=== PATIENT | male | born 1980 | race Caucasian/White ===

== ENCOUNTER 2019-07-21 04:32 | Inpatient (IN) | payer OTHER ==
[~2019-07-21] VITALS: Ht 177.8 cm; Wt 81.9 kg
[2019-07-21] VITALS (7 sets, daily range): BP systolic 114–130; BP diastolic 68–87
[~2019-07-21 04:32] MED LIST: ALL DAY ALLERGY10 M3; BACTRIM DS TAB1 EACH PO; BACTROBAN22 GM TP; RANITIDINE 150150 M1 PO
[2019-07-21] MEDS ORDERED: PRILOSEC OTC20 MG PO (04:39)
[2019-07-21 05:17] LABS: ABSOLUTE BASOPHILS 0.1 thou/uL (0.0-0.2); ABSOLUTE EOSINOPHILS 0.2 thou/uL (0.0-0.7); ABSOLUTE LYMPHOCYTES 3.4 thou/uL (0.8-5.3); ABSOLUTE MONOCYTES 0.6 thou/uL (0.0-1.2); ABSOLUTE NEUTROPHILS 3.5 thou/uL (1.6-8.1); BASOPHILS 0.9 %; EOSINOPHILS 2.5 %; HEMATOCRIT 49.1 % (42.0-52.0); HEMOGLOBIN 17.3 gm/dL (14.0-18.0); LYMPHOCYTES 44.3 %; MCH 31.5 pg (26.0-34.0); MCHC 35.3 g/dL (28.0-37.0); MCV 89.1 fL (80.0-100.0); MONOCYTES 7.9 %; MPV 7.4 fl. (7.2-11.1); NUCLEATED RBCS 0 /100WBC; PLATELET COUNT* 317 thou/uL (150-400); POLYS 44.4 %; RBC 5.51 mil/uL (4.50-6.00); RDW-CV 13.6 % (10.5-14.5); WBC 7.8 thou/uL (4.0-11.0)
[2019-07-21 05:30] LABS: CALCIUM 9.2 mg/dL (8.5-10.1); CREATININE 0.9 mg/dL (0.6-1.3); POTASSIUM 4.1 mmol/L (3.5-5.1)
[2019-07-21 05:30] LABS: AMP/METHAMP Negative (Negative); BARBITURATES Negative (Negative); BENZODIAZEPINES Negative (Negative); COCAINE Negative (Negative); METHADONE Negative (Negative); OPIATES Negative (Negative); PCP Negative (Negative); THC POSITIVE (Negative)
[2019-07-21 05:31] LABS: URINE BILIRUBIN NEGATIVE (Negative); URINE BLOOD NEGATIVE (Negative); URINE CLARITY CLEAR; URINE COLOR YELLOW; URINE GLUCOSE-RANDOM NEGATIVE (Negative); URINE KETONES NEGATIVE (Negative); URINE LEUKOCYTES-REFLEX NEGATIVE (Negative); URINE NITRITE-REFLEX NEGATIVE (Negative); URINE PROTEIN NEGATIVE (Negative); URINE SPECIFIC GRAVITY <= 1.005 (1.005-1.030); URINE UROBILINOGEN 0.2 E.U./dl (0.2-1.0)
[2019-07-21 05:42] LABS: ALBUMIN 4.2 g/dL (3.4-5.0); TOTAL BILIRUBIN 0.4 mg/dL (<0.1-1.0); TOTAL PROTEIN 8.2 g/dL (6.4-8.2)
[2019-07-21 05:50] LABS: INR 1.1
--- NOTE | 2019-07-21 07:05 | NUR ---
THIS NURSE RECEIVED REPORT FROM DELIA FOLEY. THIS NURSE TO ASSUME PT CARE AT THIS TIME.
--- NOTE | 2019-07-21 07:05 | NUR ---
THIS NURSE RECEIVED REPORT FROM DELIA FOLEY. THIS NURSE TO ASSUME PT CARE AT THIS TIME.
--- NOTE | 2019-07-21 07:59 | NUR ---
REPORT GIVEN TO DELIA GALLARDO WHO IS TO ASSUME PT CARE INPATIENT NURSE.
--- NOTE | 2019-07-21 08:30 | NUR ---
REC'D REPORT AOORIX 0800, PATIENT ARRIVED 0810 TO UNIT VIA GURNEY AND ED STAFF. A&LX4, ABLE TO COMMUNICATE NEEDS TO STAFF. ASSESSMENT COMPLETE, VS OBTAINED, WNL. CARDIZEM GTTS INFUSING 10 ML/HR. ORIENTED TO ROOM, CALL LIGHT WITHIN REACH. HOURLY ROUNDING FOR SAFETY/NEEDS.
--- NOTE | 2019-07-21 11:01 | EKG ---
[place] [address] ELECTROCARDIOGRAM REPORT Name: JACOBEVERARDO Essence Room: [address] ADM IN .R.#: [id number] Admission: 07/21/19 Attend Phys: Tabitha Damon Discharge: Date of : 84 Report #: [id number] THIS REPORT FOR: //name// [facility] ED Test Date: 2019-07-21 Test Time: 04:37:43 Pat Name: EVERARDO JAMES Department: Room: [facility] Gender: M Senior Service Aide: [place] : 1980 Requested By: Lynette Parra Order Number: [id number] MD: Elmer Mclaughlin Measurements Intervals [place] Rate: 152 P: [place]: QRS: -51 QRSD: 91 T: 38 QT: 297 QTc: 473 Interpretive Statements Atrial fibrillation Inferior infarct, old Borderline ST elevation, anterior leads No previous ECG available for comparison Electronically Signed On 07-21-2019 11:00:54 FORENSIC CHEMIST by Elmer Mclaughlin [email or web address] <ELECTRONICALLY SIGNED> By: Elmer Mclaughlin MD, [facility] 07/21/19 1100 [id number] 043 Elmer Mclaughlin MD, FACC /EPI
--- NOTE | 2019-07-21 11:01 | EKG ---
[place] [address] ELECTROCARDIOGRAM REPORT Name: EVERARDO JAMES Essence Room: [address] ADM IN .R.#: [id number] Admission: 07/21/19 Attend Phys: Tabitha Damon Discharge: Date of : 84 Report #: [id number] THIS REPORT FOR: //name// ED Test Date: 2019-07-21 Test Time: 05:57:35 Pat Name: EVERARDO JAMES Department: Room: [facility] Gender: M Corporate Communications Manager: [place] : 1980 Requested By: Lynette Parra Order Number: [id number] MD: Elmer Mclaughlin Measurements Intervals [place] Rate: 127 P: [place]: QRS: -30 QRSD: 82 T: 44 QT: 303 QTc: 441 Interpretive Statements Atrial fibrillation Left axis deviation ST elev, probable normal early repol pattern Electronically Signed On 07-21-2019 11:01:11 EDGERMAN by Elmer Mclaughlin [email or web address] <ELECTRONICALLY SIGNED> By: Elmer Mclaughlin MD, [facility] 07/21/19 1101 0557 0557 Elmer Mclaughlin MD, FACC /EPI
--- NOTE | 2019-07-21 13:08 | NUR ---
cm completed initial assessment to discuss d/c planning. pt lives at home, active and independent. pt recently unemployeed. cm offered resources for medical care, pt declined d/t pt has already established a facility he uses. pt denies DME. no hx w/snf or hh. no needs identified at this time. cm to remain avail to assist as needed.
--- NOTE | 2019-07-21 13:53 | 2DMMODE ---
[place] [address] 2 D/M-MODE ECHOCARDIOGRAM Name: EVERARDO JAMES Room: [address] IN [facility]#: [id number] Admission: 07/21/19 Attend Phys: Tabitha goncalves Sa Discharge: Date of : 84 Date of Service: 07/21/19 1353 Report #: [id number] THIS REPORT FOR: //name// APPROVED REPORT Study performed: 07/21/2019 10:26:42 EXAM: Comprehensive 2D, Doppler, and color-flow Echocardiogram Patient Location: In-Patient Room #: [facility] Status: routine BSA: 2.00 HR: 103 bpm BP: 124/86 mmHg Rhythm: NSR Other Information Study Quality: Good Indications Atrial Fibrillation Elevated Troponin 2D Dimensions IVSd: 11.41 (7-11mm) LVOT Diam: 21.69 (18-24mm) LVDd: 43.28 mm PWd: 10.29 (7-11mm) Ascending Ao: 30.50 (22-36mm) LVDs: 27.85 (25-40mm) Aortic Root: 30.89 mm Volumes Left Atrial Volume (Systole) LA ESV Index: 28.10 mL/m2 Aortic Valve AoV Peak Chad.: 1.19 m/s AO Peak Gr.: 5.62 mmHg LVOT Max P.39 mmHg AO Mean Gr.: 3.20 mmHg LVOT Mean P.53 mmHg LVOT Max V: 1.16 m/s AO V2 VTI: 18.01 cm LVOT Mean V: 0.73 m/s ZENAIDA (VTI): 3.72 cm2 LVOT V1 VTI: 18.11 cm TDI Medial E' Chad.: 0.14 m/s Lateral E' Chad.: 0.16 m/[place] [address] 2 D/M-MODE ECHOCARDIOGRAM Name: EVERARDO JAMES Room: [address] IN [facility].#: [id number] Admission: 07/21/19 Attend Phys: Tabitha goncalves Sa Discharge: Date of : 84 Date of Service: 07/21/19 1353 Report #: [id number] Pulmonary Valve PV Peak Chad.: 1.05 m/s PV Peak Gr.: 4.39 mmHg Left Ventricle The left ventricle is normal size. There is normal LV segmental wall motion. There is normal left ventricular wall thickness. Left ventricular systolic function is normal. The left ventricular ejection fraction is within the normal range. LVEF is 55-60%. This study is not technically sufficient to allow evaluation of the LV diastolic function due to atrial fibrillation. Right Ventricle The right ventricle is normal size. The right ventricular systolic function is normal. Atria Left atrium is mildly dilated. The right atrium size is normal. Aortic Valve The aortic valve is normal in structure. No aortic regurgitation is present. There is no aortic valvular stenosis. Mitral Valve The mitral valve is normal in structure. Trace mitral regurgitation. No evidence of mitral valve stenosis. Tricuspid Valve The tricuspid valve is normal in structure. Trace tricuspid regurgitation. Unable to assess PA pressure. Pulmonic Valve The pulmonary valve is normal in structure. There is no pulmonic valvular regurgitation. Great Vessels The aortic root is normal in size. IVC is normal in size and collapses >50% with inspiration. Pericardium There is no pericardial effusion. <Conclusion> [place] [address] 2 D/M-MODE ECHOCARDIOGRAM Name: EVERARDO JAMES Room: [address] IN .R.#: [id number] Admission: 07/21/19 Attend Phys: Tabitha goncalves Sa Discharge: Date of : 84 Date of Service: 07/21/19 1353 Report #: [id number] LVEF is 55-60%. Left atrium is mildly dilated. <ELECTRONICALLY SIGNED> By: Elmer Mclaughlin MD, [facility] 07/21/19 1353 1353 1353 Elmer Mclaughlin MD, FACC /INF
--- NOTE | 2019-07-21 16:24 | CON ---
[address] [address] CONSULTATION Name: EVERARDO JAMES Essence Room: [address] IN M.R.#: [id number] Admission: 07/21/19 Attend Phys: Tabitha Damon Discharge: Date of : 84 Report #: [id number] THIS REPORT FOR: //name// CC: JESSICA physician/PCP Tabitha Barlow DATE OF SERVICE: 07/21/2019 HISTORY OF PRESENT ILLNESS: The patient is a 39-year-old white male who I was asked to see in the hospital today after he was noted to be in atrial fibrillation. The patient has a history of intermittent dyspepsia. He has taken Prilosec in the past. However, he was doing well until yesterday, he went to the evening democrat. When he went home, he woke up about 3:00 in the morning with epigastric burning. He took a Prilosec, it did seem to help. He felt his heart beating irregular, somewhat lightheaded, short of breath. He came to the Emergency Room, found to be in atrial fibrillation. I was asked to see him for further evaluation and treatment. He denies any exertional dyspnea, syncope, heart murmur. PAST MEDICAL HISTORY: He has had wisdom tooth removal. No history of hypertension, diabetes, hyperlipidemia. MEDICATIONS: His only medications include occasional antihistamine and Prilosec. ALLERGIES: He has no known drug allergies. FAMILY HISTORY: His father had coronary artery bypass surgery. SOCIAL HISTORY: He is . He and his live in [place], [place]. He is currently unemployed, used to work in a [employer], his works in [employer]. Unfortunately, he has no medical insurance. No smoking. Occasionally drinks beer. Smokes marijuana occasionally. REVIEW OF SYSTEMS: No history of stroke, asthma, peptic ulcer disease, liver disease, kidney disease, cancer, psychiatric illness, chronic skin condition. PHYSICAL EXAMINATION: GENERAL: Revealed a middle-aged male, lying in bed, appeared in no distress. VITAL SIGNS: Blood pressure 120/80, pulse is 100. He is afebrile. HEENT: Anicteric. Conjunctivae are pink. Mucous membranes moist. NECK: Veins not distended. CHEST: Clear to auscultation. CARDIOVASCULAR: Irregular tachycardia. No significant murmur. ABDOMEN: Soft. EXTREMITIES: [place] [address] CONSULTATION Name: EVERARDO JAMES Room: [address]#: [id number] Admission: 07/21/19 Attend Phys: Tabitha Damon Discharge: Date of : 84 Report #: [id number] SKIN: Warm and dry. NEUROLOGIC: Nonfocal. His ECG in the Emergency Room today showed atrial fibrillation, increased ventricular response rate. Early repolarization changes. His workup in the Emergency Room today, he had a portable chest x-ray that showed normal heart size, clear lung bean. LABORATORY DATA: Sodium 139, potassium 4.1, creatinine 0.9. Liver function studies were normal. Troponin 0.41. TSH 3.2. White blood cell count 7.8, hemoglobin 17.3. IMPRESSION AND RECOMMENDATIONS: 1. Borderline elevation of troponin, suspect secondary to atrial fibrillation. Recommend echocardiogram. 2. Atrial fibrillation, possibly related to alcohol intake. I would recommend rate control. I would not recommend anticoagulation at this time. 3. Dyspepsia. <ELECTRONICALLY SIGNED> By: Elmer Mclaughlin MD, [facility] 07/21/19 [phone] [id number] Mclaughlin MD, FACC /nt
[2019-07-22 00:38] VITALS: BP 119/76
[2019-07-22 02:10] LABS: GLYCOHEMOGLOBIN (HGB A1C) 5.4 % (4.8-5.6)
[2019-07-22 04:32] VITALS: BP 113/75
[2019-07-22 04:51] LABS: HEMATOCRIT 45.8 % (42.0-52.0); HEMOGLOBIN 15.8 gm/dL (14.0-18.0); MCH 31.1 pg (26.0-34.0); MCHC 34.6 g/dL (28.0-37.0); MCV 90.1 fL (80.0-100.0); MPV 7.3 fl. (7.2-11.1); RBC 5.09 mil/uL (4.50-6.00); RDW-CV 13.7 % (10.5-14.5); WBC 8.5 thou/uL (4.0-11.0)
[2019-07-22 05:08] LABS: CALCIUM 9.4 mg/dL (8.5-10.1); POTASSIUM 4.4 mmol/L (3.5-5.1)
[2019-07-22 05:22] LABS: TROPONIN-I LEVEL 2.23 ng/mL (<0.06)
--- NOTE | 2019-07-22 06:40 | NUR ---
ASSUMED CARE OF PT AFTER REPORT AT 1930. PT A&OX4. VSS. PHYSICAL ASSESSMENT COMPLETED AND CHARTED. PT ON RA. PT TRACING SR/SB ON TELE. PT UPADLIB TO RESTROOM. PT DENIES ANY PAIN OR DISCOMFORT. FAMILY AT BS. PT ABLE TO SLEEP WELL ON BED. CALL LIGHT WITHIN REACH.
[2019-07-22 08:00] VITALS: BP 110/74
--- NOTE | 2019-07-22 14:08 | NUR ---
ASSUMED PT CARE AT 0800, AOX4, UP AD MACI, O2 SAT 90'S RA. TRACING SINUS RHYTHM ON TELE. PT DENIES PAIN. VSS, AM ASSESSMENT CHARTED, MEDS GIVEN PER MAR, CALL LIGHT WITHIN REACH, WILL CONTINUE TO MONITOR.
[2019-07-22 16:52] VITALS: BP 121/83
[2019-07-22 19:40] VITALS: BP 131/90
[2019-07-23] VITALS: BP 109/70
[2019-07-23 04:00] VITALS: BP 123/79
[2019-07-23 08:00] VITALS: BP 124/84
--- NOTE | 2019-07-23 09:00 | NUR ---
ASSUMED CARE OF PT AT 0730. PT RESTING IN BED WAITING FOR BREAKFAST. SPOUSE AT BEDSIDE. PT A&0X4, DENIES ANY PAIN OR SHORTNESS OF BREATH AT THIS TIME. TRACING SR ON THE MINE EXPLORATION ENGINEER. ON RA SAT UPPER 90'S. UP AD MACI IN ROOM. PT GOAL FOR TODAY IS SOTALOL LOADING AND DISCHARGE PLANNING TO HOME. AM ASSESSMENT CHARTED. MEDICATIONS PER MAR. PT REPOSITIONS SELF. HOURLY ROUNDING OBSERVED. BED IN LOW POSITION. CALL LIGHT WITHIN REACH. WILL CONTINUE PLAN OF CARE.
[2019-07-23 09:03] VITALS: BP 123/79
--- NOTE | 2019-07-23 09:44 | EKG ---
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 Officer: : 1980 Requested By: Elmer Mclaughlin Order Number: [id number] Arturo MD: Elmer Mclaughlin Measurements Intervals [place] Rate: 60 P: 23 WI: 155 QRS: -35 QRSD: 108 T: 50 QT: 419 QTc: 419 Interpretive Statements Sinus rhythm Left axis deviation Abnormal R-wave progression, early transition Compared to ECG 07/21/2019 05:57:35 Atrial fibrillation no longer present ST (T wave) deviation no longer present Electronically Signed On 07-23-2019 9:43:52 RIVER RAFTING GUIDE by Elmer Mclaughlin [email or web address] <ELECTRONICALLY SIGNED> By: Elmer Mclaughlin MD, [facility] 07/23/19 0943 0 0 Elmer Mclaughlin MD, [facility] /EPI
[2019-07-23] MEDS ORDERED: SORINE 80 MG TA80 M1 PO (11:23)
[2019-07-23] MEDS ORDERED: ASPIRIN325 PO (11:23)
[2019-07-23 12:45] VITALS: BP 131/83
--- NOTE | 2019-07-23 13:39 | NUR ---
DISCHARGE ORDERS RECEIVED. DISCHARGE INSTRUCTIONS, CARE NOTES, SCRIPTS AND FOLLOW UP APPTS GIVEN TO PT. PT COMMUNICATES UNDERSTANDING OF DISCHARGE TEACHING. IV AND SUBSTATION TECHNICIAN REMOVED. PT DISCHARGED WITH ALL BELONGINGS AND PAPERWORK VIA WHEELCHAIR WITH NURSING STAFF TO SPOUSE OWN PERSONAL VEHICLE.
--- NOTE | 2019-07-23 14:29 | NUR ---
HUMANARC SCREENED PT, NOT ELIGIBLE FOR MEDICAID
--- NOTE | 2019-07-24 14:13 | NUR ---
Spoke with the patient by phone, he is doing well. Is not having any of the issues that brought him into the hospital. He was able to get all his medications. He did not have any questions or concerns.
== END 2019-07-23 13:45 | disposition home or self-care (01) | DRG 282 ==
LOC: M.ERS 04:32 → M.2W 06:22 → M.TBA-ER 06:22 → M.2W 08:10
PROVIDERS: Emergency Medicine; Internal Medicine; ADMIT Family Medicine
DX: I21.4 Non-ST elevation (NSTEMI) myocardial infarction (principal); K21.9 Gastro-esophageal reflux disease without esophagitis; F12.90 Cannabis use, unspecified, uncomplicated; I48.91 Unspecified atrial fibrillation; Z79.82 Long term (current) use of aspirin; Z79.899 Other long term (current) drug therapy; Z82.49 Family history of ischemic heart disease and other diseases of the circulatory system

== ENCOUNTER 2020-02-23 10:13 | Observation (INO) | payer OTHER ==
[2020-02-23] VITALS (10 sets, daily range): BP systolic 115–141; BP diastolic 73–93
[~2020-02-23] VITALS: Ht 180.3 cm; Wt 81.6 kg
[~2020-02-23 10:13] MED LIST changes: +ASPIRIN325 PO; +PRILOSEC OTC20 MG PO; +SORINE 80 MG TA80 M1 PO
[2020-02-23 11:35] LABS: HEMATOCRIT 44.4 % (42.0-52.0); HEMOGLOBIN 15.5 gm/dL (14.0-18.0); MCH 31.7 pg (26.0-34.0); MCHC 34.9 g/dL (28.0-37.0); MCV 90.9 fL (80.0-100.0); MPV 7.8 fl. (7.2-11.1); RBC 4.89 mil/uL (4.50-6.00); RDW-CV 13.5 % (10.5-14.5); WBC 5.9 thou/uL (4.0-11.0)
[2020-02-23 11:40] LABS: ANION GAP 11 mmol/L (7-16); BUN 11 mg/dL (7-18); CALCIUM 8.8 mg/dL (8.5-10.1); CHLORIDE 104 mmol/L (98-107); CO2 22 mmol/L (21-32); CREATININE 0.9 mg/dL (0.6-1.3); GLUCOSE 103 mg/dL (70-99); SODIUM 137 mmol/L (136-145)
[2020-02-23 11:42] LABS: APTT 23.2 Seconds (25.0-31.3); PROTIME 10.2 Seconds (9.20-11.50)
[2020-02-23 11:44] LABS: ALBUMIN 4.2 g/dL (3.4-5.0); ALKALINE PHOSPHATASE 73 U/L (46-116); CHOLESTEROL 249 mg/dL (<200); HDL CHOLESTEROL 31 mg/dL (>40); LDL CHOLESTEROL 140 mg/dL (<100); SGOT 20 U/L (15-37); SGPT 67 U/L (30-65); TOTAL BILIRUBIN 0.2 mg/dL (<0.1-1.0); TOTAL PROTEIN 7.8 g/dL (6.4-8.2); TRIGLYCERIDE 390 mg/dL (<150); VLDL 78 mg/dL (<40)
[2020-02-23 11:45] LABS: SERUM ASSESSMENT Clear
[2020-02-23] MEDS ORDERED: ASA81BEC PO (15:12)
--- NOTE | 2020-02-23 17:09 | EKG ---
[place] [address] ELECTROCARDIOGRAM REPORT Name: EVERARDO JAMES Room: [address] M.R.#: [id number] Admission: 02/23/20 Attend Phys: Elmer Mclaughlin MD Discharge: Date of : 84 Date of Service: 02/23/20 1147 Report #: [id number] THIS REPORT FOR: //name// [facility] Test Date: 2020-02-23 Test Time: 11:47:38 Pat Name: EVERARDO JAMES Department: Room: [facility] Gender: M Transformer Assembler: : 1980 Requested By: Elmer Mclaughlin Order Number: [id number] MD: Elmer Mclaughlin Measurements Intervals [place] Rate: 53 P: -7 [place]: 168 QRS: -29 QRSD: 102 T: 45 QT: 446 QTc: 419 Interpretive Statements Sinus bradycardia Borderline left axis deviation Abnormal R-wave progression, early transition Baseline wander in lead(s) II,III,aVF Compared to ECG 07/23/2019 09:01:07 rate has slowed Electronically Signed On 02-23-2020 17:09:12 CDT by Elmer Mclaughlin [email or web address] <ELECTRONICALLY SIGNED> By: Elmer Mclaughlin MD, FAC 02/23/20 1709 1147 1147 Elmer Mclaughlin MD, FAC /EPI
--- NOTE | 2020-02-23 17:41 | CARD ---
[address] [address] CARDIAC CATH REPORT Name: EVERARDO JAMES Room: [address] Ursula MAnai#: [id number] Admission: 02/23/20 Attend Phys: Elmer Mclaughlin MD, F Discharge: Date of : 84 Report #: [id number] THIS REPORT FOR: //name// cc: [facility] - Clinic physician unknown [facility] - [facility] physician unknown ~ APPROVED REPORT Study performed: 02/23/2020 12:33:05 Patient Details Patient Status: Out-Patient Room #: The patient is a 39 year-old male Event Personnel Elmer Mclaughlin Nurse Transplant, Edison Luong RN Custom Miller, Keyla Celis RTR Scrub, Candida Garcia RTR Monitor Procedures Performed Art Access - R radial artery, Left Heart Cath w/or w/o Coronaries LHC, ANNIE Place w/wo Plasty Single DIAG , Hemostasis with Vasc band Indication Arrhythmia, Positive stress test, Chest pain Risk Factors Hypercholesterolemia Admission/Lab Medications/Medications given during procedure Glycoprotein IllbIlla Inhibitors, Heparin Unfract., Heparin IV 4000 units, Heparin IV 3000 units, Aggrastat Unknown 8.2 ml, Effient PO 60 mg Procedure Narrative The patient was brought electively to the Cardiac Catheterization Laboratory and was prepped and draped in a sterile manner. The right wrist was infiltrated with 2% Lidocaine subcutaneous anesthesia. A 6F Slender Sanger sheath was inserted into the right radial artery. Coronary angiography was performed using coronary diagnostic catheters. The right coronary system was accessed and visualized with a 6F JR4 catheter. The left coronary system was accessed and visualized with a 6F JL4 catheter. The left ventricle was accessed and visualized with a 6F Pigtail catheter. Left ventricular/[place] [address] CARDIAC CATH REPORT Name: EVERARDO JAMES Room: [address]#: [id number] Admission: 02/23/20 Attend Phys: Elmer Mclaughlin MD, F Discharge: Date of : 84 Report #: [id number] Valve gradient assessed via catheter pullback. Left ventriculogram was performed in ANGULO projection. Closure device was deployed with a 6 Fr Vasc-Band Reg 24cm. The patient tolerated the procedure well and there were no complications associated with the procedure. There was no hematoma. Intraoperative Conscious Sedation Sedation start time: 13:23 Case end Time: 14:12 Fentanyl 25 mcg Versed 2 mg Fluoro Time: 10.3 minutes Dose: DAP 60227 cGycm2 1405 mGy Contrast Type and Amount: Omnipaque 170 ml Coronary Angiography The patient's coronary anatomy is right dominant. Diagnostic Cath Left Main 0% stenosis LAD 100% mid stenosis and filled distally by collateralsl from the rca Diagonal 1 medium vessel with 70% proximal stenosis Circumflex 40% distal stenosis Right Coronary 60% proximal and 60% mid stenosis. RPLV proximal occluded and filled by collaterals from the left coronary artery Left Ventriculography The left ventricular ejection fraction is estimated to be 40-45%. Left ventricular wall motion abnormalities are present. There is no mitral insufficiency. mild hypokinesis noted of the distal anteroapical wall Hemodynamics The aortic pressure is 112/80 mmHg with a mean of 94 mmHg. The left ventricular pressure is 124/10 mmHg with a mean of mmHg. The left ventricular end diastolic pressure is 12 mmHg. There was no gradient across the aortic valve upon pullback. Pullback from the left ventricle to the aorta revealed no gradient across the aortic valve. PCI Technique Lesion Anticoagulation was achieved with Heparin. Aggrastat 8.2 IV BOLUS Percutaneous coronary intervention was performed on the first diagnonal branch segment. The lesion [place] [address] CARDIAC CATH REPORT Name: EVERARDO JAMES Room: [address]#: [id number] Admission: 02/23/20 Attend Phys: Elmer Mclaughlin MD, F Discharge: Date of : 84 Report #: [id number] was 70% with OUMOU 3 flow. A 6F XB LAD 3.5 Guide Catheter was used to engage the lm ostium. A Choice PT Wire 182cm Interventional Guidewire was used to cross the lesion. STENT DEPLOYMENT A drug-eluting stent Romel RX Stent 2.60I39fz was inserted and inflated up to 9.00atm for 18seconds. Repeat angiography revealed the following post-stent deployment results: 0% stenosis. Additional Inflation: 9.00atm for 14seconds. Final angiography reveals 0 % stenosis with OUMOU 3 flow. PCI Technique Lesion 2 Percutaneous Coronary Intervention was performed on the mid left anterior descending artery segment. Percutaneous coronary intervention was performed on the mid left anterior descending artery segment. The lesion stenosis prior to intervention was 100% with OUMOU 0 flow. A xblad3.5 Guide Catheter was used to engage the lm ostium. A bmw Interventional Guidewire was used to cross the lesion. Balloon Dilation unable to cross lesion with neither the bmw nor choice PT extra support guide wire suggesting the occlusion was chronic. Therefore, no additional attempts were made to cross the lesion. Final angiography reveals 100 % stenosis with OUMOU 0 flow. Conclusion 1. chronic occlusion of the mid lad that filled retrograde by collaterals from the rca 2. 70% stenosis of the first diagonal branch of the lad 3. 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 unsuccesful PTCA of the lad 5. successful placement of a drug eluting stent in the diagonal branch 6. LVEF 45-50% Recommendations Cardiac Rehabilitation Referral [place] [address] CARDIAC CATH REPORT Name: EVERARDO JAMES Room: [address] M.R.#: [id number] Admission: 02/23/20 Attend Phys: Elmer Mclaughlin MD, F Discharge: Date of : 84 Report #: [id number] Medications Administered Prasugrel <ELECTRONICALLY SIGNED> By: Elmer Mclaughlin MD, [facility] 02/23/201739 39 39Davishawna Mclaughlin MD, FAC /INF
--- NOTE | 2020-02-23 18:45 | NUR ---
RECEIVED REPORT FROM LAM IN AUTISM TEACHER. PT ARRIVED TO ROOM AROUND 1538, ORIENTED TO ROOM BED AND CALL LIGHT. ADMISSION ASSESSMENT, EDUCATION AND HISTORY COMPLETED CHARTED. MEDS PER EMAR. IV INTACT WITH FLUIDS GOING. VISITED AND STAYED TILL 7 PM. PT DENIED PAIN OR DISCOMFORT THIS SHIFT. VASC BAND IN PLACE, BUT ALL THE AIR IS OUT. NO BLEEDING OR HEMATOMA. LIMB ALERT PLACED ON RIGHT ARM. PT CURRENTLY RESTING IN BED PLAYING VIDEO GAMES. CALL LIGHT IS WITHIN REACH. HOURLY ROUNDING PERFORMED. LOW FALL RISK PRECAUTIONS IN PLACE.
[2020-02-24] VITALS: BP 117/83
[2020-02-24 04:00] VITALS: BP 123/83
[2020-02-24 04:44] LABS: HEMATOCRIT 42.1 % (42.0-52.0); HEMOGLOBIN 14.9 gm/dL (14.0-18.0); MCHC 35.4 g/dL (28.0-37.0); MCV 90.3 fL (80.0-100.0); MPV 7.4 fl. (7.2-11.1); RBC 4.66 mil/uL (4.50-6.00); RDW-CV 13.6 % (10.5-14.5); WBC 5.9 thou/uL (4.0-11.0)
[2020-02-24 05:01] LABS: ANION GAP 9 mmol/L (7-16); BUN 10 mg/dL (7-18); CALCIUM 8.6 mg/dL (8.5-10.1); CHLORIDE 103 mmol/L (98-107); CO2 25 mmol/L (21-32); CREATININE 0.9 mg/dL (0.6-1.3); GLUCOSE 92 mg/dL (70-99); POTASSIUM 3.5 mmol/L (3.5-5.1); SODIUM 137 mmol/L (136-145); TROPONIN-I LEVEL <0.06 ng/mL (<0.06)
[2020-02-24 07:40] VITALS: BP 144/94
--- NOTE | 2020-02-24 11:00 | D ---
[address] [address] DISCHARGE SUMMARY Name: EVERARDO JAMES Room: [address] Hany#: [id number] Admission: 02/23/20 Attend Phys: Elmer Mclaughlin MD, F Discharge: Date of : 84 Report #: [id number] THIS REPORT FOR: //name// cc: [facility] physician unknown [facility] physician unknown ~ THIS REPORT FOR: //name// CC: Elmer Mclaughlin [facility] unknown [facility] DATE OF SERVICE: 02/24/2020 DISCHARGE DIAGNOSES: 1. Coronary artery disease. 2. Cardiomyopathy. 3. Paroxysmal atrial fibrillation. 4. Crescendo angina. PROCEDURES: Left heart catheterization with placement of a drug-eluting stent in the diagonal artery via the radial approach. CONSULTANTS: None. 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 The patient initially presented in 07/2019 with atrial fibrillation. He was admitted to [facility] where I saw him in consultation. Echocardiogram at that time showed normal left ventricular function. His thyroid function studies were normal. His troponin was borderline elevated. It was felt to be secondary to his atrial fibrillation. He was placed on sotalol and converted to sinus rhythm. He was not anticoagulated because of his low CHADS score. He returned to see my nurse practitioner on 01/26. The patient notes occasionally with exercise he developed a tightness in his chest. He did note some shortness of breath, but no palpitations. He was taking sotalol and aspirin. My nurse practitioner ordered a stress echocardiogram that was done 02/16. This showed normal left ventricular function, but with stress, there is anteroseptal hypokinesis suggesting ischemia. I recommended cardiac catheterization. PAST MEDICAL HISTORY: He has had no major surgical procedures. He has no history of hypertension or diabetes. MEDICATIONS: Include sotalol 80 mg twice daily, aspirin 81 a day, and omeprazole for indigestion. PHYSICAL EXAMINATION: [place] [address] DISCHARGE SUMMARY Name: MAGDA JAMESJeff Lowry Room: [address]#: [id number] Admission: 02/23/20 Attend Phys: Elmer Mclaughlin MD, F Discharge: Date of : 84 Report #: [id number] GENERAL: Revealed a young male who appeared in no distress. VITAL SIGNS: Blood pressure 120/80 and pulse is 60. HEENT: Pupils are anicteric. Mucous membranes are moist. CHEST: Clear to auscultation. CARDIOVASCULAR: Regular bradycardia. ABDOMEN: Soft. EXTREMITIES: Had no edema. DIAGNOSTIC DATA: His ECG on admission showed sinus bradycardia with early transition. LABORATORY DATA: His lab work, sodium was 137, potassium 3.5, BUN 10, creatinine 0.9, and glucose 92. Liver function studies were normal. His cholesterol was 249, triglycerides 390, HDL 31, and LDL 140. TSH in July was 3.2. Glycosylated hemoglobin was 5.4. His white blood cell count was 5.9 and hemoglobin 14.9. HOSPITAL COURSE: The patient was admitted to the outpatient department. I performed cardiac catheterization from the right radial artery. Results showed an ejection fraction of 45-50%. There were wall motion abnormalities noted with hypokinesis noted of the distal anteroapical wall. He was found to have complete occlusion of the mid LAD after the first diagonal branch. The first diagonal branch had a proximal 70% stenosis. The circumflex artery had a 40% distal stenosis. There were collaterals from the distal circumflex to the posterolateral branch of the right coronary artery. The right coronary artery has 60% proximal and 60% mid stenosis. There were collaterals from the distal right coronary artery to the LAD. I then attempted angioplasty of the occluded LAD, but these attempts were unsuccessful despite several wires. It was felt to be a chronic occlusion. I then placed a single drug-eluting stent in the diagonal artery. He tolerated this well. There was no hematoma in the right wrist. He was treated with heparin and Aggrastat. He was loaded with Effient. Following the procedure, he had no hematoma of the wrist. There was no recurrent chest pain or shortness of breath. Prior to discharge, he was ambulating in the simms and had no further complaints. He was seen by cardiac rehabilitation. The patient was noted to be bradycardic. He was discharged on his home medications including aspirin 81 mg a day. Because of bradycardia, his sotalol was decreased to 40 mg every 12 hours. His blood pressure is too low for an AGNES inhibitor. He was discharged on Effient 10 mg a day for 1 year following placement of a drug-eluting stent. Lipitor 40 mg a day in an effort to lower his LDL and he was given nitroglycerin to take as needed for chest pain. I have recommend he followup with his primary care physician for routine medical care. I did recommend he take a week off from work. He is scheduled to return to see me in Cardiology Clinic in 4 weeks for followup. He was to contact my office if he had recurrent chest pain, shortness of breath, or bleeding. He is felt to have a good prognosis from cardiac standpoint. At the time of discharge, he had a blood pressure 120/80 and pulse is 55. Followup ECG [facility] [address] [place] [address] DISCHARGE SUMMARY Name: EVERARDO JAMES Room: [address] M.R.#: [id number] Admission: 02/23/20 Attend Phys: Elmer Mclaughlin MD, F Discharge: Date of : 84 Report #: [id number] showed sinus bradycardia but no ST or T-wave changes. He was to contact my office if he does have recurrent chest pain, shortness of breath, or bleeding. <ELECTRONICALLY SIGNED> By: Elmer Mclaughlin MD, FACC 02/24/20 1100 0858 [id number] Mclaughlin MD, FACC /nt
[2020-02-24] MEDS ORDERED: LIPITOR 40 MG T40 M1 PO (11:20)
[2020-02-24] MEDS ORDERED: EFFIENT10 MG PO (11:20)
[2020-02-24] MEDS ORDERED: NITROGLYCERIN0.4 MG SUBLING (11:21)
[2020-02-24] MEDS ORDERED: SORINE 80 MG TA80 MG PO (11:23)
[2020-02-24 11:24] VITALS: BP 144/94
--- NOTE | 2020-02-24 12:10 | NUR ---
RECEIVED REPORT. ASSUMED CARE OF PT AROUND 0730. PT A&O X4. AM ASSESSMENT AND VITALS COMPLETED CHARTED. 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 PT DENIES PAIN, REPORTS THAT RIGHT WRIST IS A LITTLE SORE POST CATH, NO SIGNS OF HEMATOMA. AT BEDSIDE. MEDS PER EMAR. DISCHARGE TO HOME ORDERS RECIEVED FROM DR ESCALANTE. DISCHARGE COMPLETED DOCUMENTED. DISCHARGE SUMMARY, CARE NOTES AND SCRIPTS GIVEN TO PT. PT AWARE OF FOLLOW UP APPOINTMENTS. IV AND MENTAL MEASUREMENTS TEACHER REMOVED. ALL BELONGINGS GATHERED AND LEFT WITH PT. PT LEFT UNIT WITH NURSING STAFF. PT LEFT UNIT IN CAR WITH .
--- NOTE | 2020-02-24 13:19 | EKG ---
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1980 Requested By: Elmer Mclaughlin Order Number: [id number] Reading MD: Elmer Mclaughlin Measurements Intervals [place] Rate: 52 P: 167 NE: 167 QRS: 205 QRSD: 108 T: 154 QT: 443 QTc: 412 Interpretive Statements Sinus or ectopic bradycardia Right axis deviation Low voltage, precordial leads Abnormal R-wave progression, early transition Abnormal T, consider ischemia, lateral leads Compared to ECG 02/23/2020 11:47:38 Ectopic atrial rhythm now present Right-axis deviation now present Low QRS voltage now present T-wave abnormality now present Possible ischemia now present Electronically Signed On 02-24-2020 13:19:42 CDT by Elmer Mclaughlin [email or web address] <ELECTRONICALLY SIGNED> By: Elmer Mclaughlin MD, [facility] 02/24/20 1319 1743 1743 Elmer Mclaughlin MD, [facility] /EPI
--- NOTE | 2020-02-24 13:29 | EKG ---
[place] [address] ELECTROCARDIOGRAM REPORT Name: EVERARDO JAMES Room: [address] M.R.#: [id number] Admission: 02/23/20 Attend Phys: Elmer Mclaughlin MD Discharge: 02/24/20 Date of : 84 Date of Service: 02/24/20 0354 Report #: [id number] THIS REPORT FOR: //name// [facility] Test Date: 2020-02-24 Test Time: 03:54:10 Pat Name: EVERARDO JAMES Department: Room: [address] Gender: M Supervisor Anodizing: PATI : 1980 Requested By: Elmer Mclaughlin Order Number: [id number] Reading MD: Elmer Mclaughlin Measurements Intervals [place] Rate: 46 P: 15 AL: 171 QRS: -17 QRSD: 106 T: 24 QT: 491 QTc: 430 Interpretive Statements Sinus bradycardia Borderline left axis deviation Low voltage, precordial leads Compared to ECG 02/23/2020 17:43:27 Ectopic atrial rhythm no longer present Right-axis deviation no longer present T-wave abnormality no longer present Possible ischemia no longer present Electronically Signed On 02-24-2020 13:29:04 CDT by Elmer Mclaughlin [email or web address] <ELECTRONICALLY SIGNED> By: Elmer Mclaughlin MD, [facility] 02/24/20 1329 0354 Elmer Mclaughlin MD, [facility] /EPI
== END 2020-02-24 12:10 | disposition home or self-care (01) ==
LOC: M.CL 10:13 → M.TBA-CV 15:07 → M.2W 15:07
PROVIDERS: ADMIT Internal Medicine Cardiovascular Disease; ATTEND Internal Medicine Cardiovascular Disease
DX: I25.110 Atherosclerotic heart disease of native coronary artery with unstable angina pectoris (principal); I42.9 Cardiomyopathy, unspecified; I48.0 Paroxysmal atrial fibrillation; I49.9 Cardiac arrhythmia, unspecified

== ENCOUNTER 2020-12-13 08:49 | Emergency (ER) | payer OTHER ==
[~2020-12-13] VITALS: Ht 180.3 cm; Wt 74.8 kg
[~2020-12-13 08:49] MED LIST changes: +ASA81BEC PO; +COZAAR 25 MG TA25 M1 PO; +EFFIENT10 MG PO; +ELIQUIS5 MG PO; +LIPITOR 40 MG T40 M1 PO; +NITROGLYCERIN0.4 MG SUBLING; +SORINE 80 MG TA80 MG PO; +SOTALOL 120 MG120 M1 PO
[2020-12-13 09:14] LABS: HEMATOCRIT 44.1 % (42.0-52.0); MCH 30.9 pg (26.0-34.0); MCHC 34.1 g/dL (28.0-37.0); MCV 90.9 fL (80.0-100.0); MPV 7.3 fl. (7.2-11.1); RBC 4.85 mil/uL (4.50-6.00); RDW-CV 13.4 % (10.5-14.5); WBC 6.1 thou/uL (4.0-11.0)
[2020-12-13 09:25] LABS: CREATININE 0.8 mg/dL (0.6-1.3)
[2020-12-13 09:30] LABS: ALBUMIN 4.2 g/dL (3.4-5.0); TOTAL BILIRUBIN 0.4 mg/dL (<0.1-1.0); TOTAL PROTEIN 7.6 g/dL (6.4-8.2)
[2020-12-13 09:51] LABS: PROTIME 10.7 Seconds (9.20-11.50)
--- NOTE | 2020-12-13 15:41 | EKG ---
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1980 Requested By: Minor Coelho Order Number: [id number] MD: Elmer Mclaughlin Measurements Intervals [place] Rate: 47 P: 33 MT: 163 QRS: 27 QRSD: 101 T: 54 QT: 440 QTc: 389 Interpretive Statements Sinus bradycardia Abnormal R-wave progression, early transition Compared to ECG 12/09/2020 08:01:50 No significant changes Electronically Signed On 12-13-2020 15:41:06 CDT by Elmer Mclaughlin [email or web address] <ELECTRONICALLY SIGNED> By: Elmer Mclaughlin MD, [facility] 12/13/20 1541 0852 0852 Elmer Mclaughlin MD, [facility] /EPI
[2020-12-13 15:56] VITALS: BP 109/79
== END 2020-12-13 15:57 | disposition home or self-care (01) ==
LOC: M.ERS 08:49
PROVIDERS: Emergency Medicine
DX: R07.89 Other chest pain (principal); K21.9 Gastro-esophageal reflux disease without esophagitis; I48.91 Unspecified atrial fibrillation

== ENCOUNTER → 2021-01-04 | Outpatient (CLI) | payer OTHER ==
[~2021-01-04] MED LIST changes: +SOTALOL 120 MG120 MG PO; +SOTALOL AF160 MG PO
--- NOTE | 2021-01-04 13:55 | CARDNUC ---
[place] [address] CARDIAC NUCLEAR IMAGING REPORT Name: EVERARDO JAMES Room: [facility]#: [id number] Admission: 01/04/21 Attend Phys: Elmer Mclaughlin MD Discharge: Date of : 84 Date of Service: 01/04/21 1355 Report #: [id number] THIS REPORT FOR: cc: FAM - No family physician/PCP FAM - No family physician/PCP Will Turcios MD [facility] ~ APPROVED REPORT Study performed: 01/04/2021 09:53:28 Exam: Nuclear Stress Test Indication: Chest pain, increased dyspnea, dizziness/lightheadedness, racing heart feeling. Patient Location: Out-Patient Stress Tech: Lauren Grubbs Stress Nurse: Nilam Edwards Tech:LATANYA Cunningham Ht: 5 ft 10 in Wt: 182 lbs BSA: 2.01 m2 BMI: 26.11 Medical History Medical History: chest pain, increased dyspnea, racing heart feeling, CAD s/p stent, PAFib, HLD, decreased EF %, GERD, cardiomyopathy, Covid-Aug 2020, dizziness, lightheadedness, bradycardia, past smoker, marijuana user, FHX CAD. Medications: Sotalol, Eliquis, ASA 81 mg, Losartan, Atorvastatin. Allergies: No known drug allergies Cardiac Risk Factors: FHX of CAD, Hyperlipidemia, SOB, Past Smoker, marijuana user, PAFib, cardiomyopathy, bradycardia, decreased EF%. Previous Cardiac Procedures: PCI Pretest Chest Pain Characteristics: No chest pain Exercise History: Indeterminate Physical Disabilities: PAFib, dysrhythmias, lightheadedness/dizzy. Meds Held (24 hrs): None Stress Test Details Stress Test: Pharmacologic stress testing performed using 0.4 mg of regadenoson per 5 mL given IV over 10 seconds. Reason for pharmacologic stress test: PAFib, dysrhythmias, lightheadedness/[place] [address] CARDIAC NUCLEAR IMAGING REPORT Name: EVERARDO JAMES Room: [facility]#: [id number] Admission: 01/04/21 Attend Phys: Elmer Mclaughlin MD Discharge: Date of : 84 Date of Service: 01/04/21 1355 Report #: [id number] Resting HR: 49 bpm Max Heart Rate (APMHR): 182 bpm Max HR Achieved: 102 bpm Target HR (85% APMHR): 154 bpm % of APMHR: 56 Recovery HR: 76 bpm BP Resting BP: 124/81 mmHg Max BP: 159/103 mmHg ECG Resting ECG: Sinus Rhythm Stress ECG: Sinus Rhythm ST Change: None Arrhythmia: None Recovery ECG: Sinus Rhythm Recovery ST Change: None Recovery Arrhythmia: None Clinical Reason for Termination: Completed protocol Stress Symptoms: Dyspnea, lightheadedness, dizzy, chest tightness 6/10, headache. Exercise duration: 00 min 00 sec Exercise capacity: 1.00 METs The patient tolerated Lexiscan infusion without significant cardiac symptoms. Nurse Comments A 40 year old male presented for a sitting Lexiscan r/t PAFib, dyspnea, lightheadedness. Test well tolerated. Recovery unremarkable. Patient was stable and stated he felt better when escorted via wheelchair to Nuclear Medicine for imaging. Stress ECG Conclusion The baseline twelve-lead EKG shows sinus rhythm without significant ST segment abnormality. EKGs pain during and post Lexiscan infusion show sinus rhythm with no significant ST segment changes when compared to baseline. There were no stress-induced arrhythmias. NM EXAM: Myocardial Perfusion REST/STRESS Imaging Protocol: Rest Tc-99m/Stress Tc-99m 1 day Resting Data Rest SPECT myocardial perfusion imaging was performed in supine position 30 minutes following the intravenous injection of 9[place]9 [place] [address] CARDIAC NUCLEAR IMAGING REPORT Name: EVERARDO JAMES Room: [facility] Hany#: [id number] Admission: 01/04/21 Attend Phys: Elmer Mclaughlin MD Discharge: Date of : 84 Date of Service: 01/04/21 1355 Report #: [id number] Tc-99m Sestamibi. Time of rest injection: 0825 Date: 01/04/2021 The images were gated to evaluate regional wall motion and calculate left ventricular ejection fraction. Administration Route: IV Administration Site: Right Hand Pharmacologic Stress Pharmacologic stress test was performed by injecting Regadenoson 0.4 mg IV push followed by the intravenous injection of 30.9 mCi of Tc-99m Sestamibi. Time of stress injection: 1000 Date: 01/04/2021 Administration Route: IV Administration Site: Right Hand Gated Stress SPECT was performed 40 minutes after stress injection. The images were gated to evaluate regional wall motion and calculate left ventricular ejection fraction. Prone imaging was performed. Study Quality Study: Good Artifact: No artifact Study Data At rest, the left ventricular ejection fraction was 52%.. Post stress, the left ventricular ejection was 45%.. TID = 1.14. Perfusion Perfusion images obtained at rest show a moderate size moderate to severe intensity defect involving the mid to apical anterior wall. Images obtained after Lexiscan infusion show a large in size severe intensity defect involving the mid to apical anterior and anteroseptal wall. Wall Motion Gated images show mildly decreased LV systolic function with apical hypokinesis. Nuclear Conclusion ECG Findings: negative for ischemia Clinical Findings: negative for ischemia Nuclear Findings: positive for ischemia Exercise Capacity: not assessed Left Ventricular Function: [place] [address] CARDIAC NUCLEAR IMAGING REPORT Name: EVERARDO JAMES Room: [facility] JAQUELINE Leach#: [id number] Admission: 01/04/21 Attend Phys: Elmer Mclaughlin MD Discharge: Date of : 84 Date of Service: 01/04/21 1355 Report #: [id number] Risk Study: high Perfusion images suggest prior focal anterior wall infarct with a moderate region of rehan-infarct ischemia. Global LV systolic function is mildly decreased with wall motion abnormalities as outlined above. This is a high risk study. <Conclusion> The baseline twelve-lead EKG shows sinus rhythm without significant ST segment abnormality. EKGs pain during and post Lexiscan infusion show sinus rhythm with no significant ST segment changes when compared to baseline. There were no stress-induced arrhythmias. <ELECTRONICALLY SIGNED> By: Will Turcios MD, FACC 01/04/21 1355 1355 1355 Will Turcios MD, FACC /INF
== END ==
LOC: M.NUC 12-14 10:28 → M.CRD 01-05 08:30
PROVIDERS: ATTEND Internal Medicine Cardiovascular Disease
DX: I25.10 Atherosclerotic heart disease of native coronary artery without angina pectoris (principal); R07.9 Chest pain, unspecified

== ENCOUNTER 2021-04-20 18:46 | Emergency (ER) | payer OTHER ==
[~2021-04-20] VITALS: Ht 180.3 cm; Wt 86.2 kg
[2021-04-20 19:59] LABS: ABSOLUTE BASOPHILS 0.1 thou/uL (0.0-0.2); ABSOLUTE EOSINOPHILS 0.2 thou/uL (0.0-0.7); ABSOLUTE LYMPHOCYTES 1.9 thou/uL (0.8-5.3); ABSOLUTE MONOCYTES 0.8 thou/uL (0.0-1.2); BASOPHILS 0.5 %; EOSINOPHILS 1.6 %; HEMATOCRIT 42.9 % (42.0-52.0); HEMOGLOBIN 15.1 gm/dL (14.0-18.0); LYMPHOCYTES 17.6 %; MCH 31.3 pg (26.0-34.0); MCHC 35.1 g/dL (28.0-37.0); MCV 89.2 fL (80.0-100.0); MONOCYTES 7.1 %; MPV 7.1 fl. (7.2-11.1); NUCLEATED RBCS 0 /100WBC; PLATELET COUNT* 249 thou/uL (150-400); POLYS 73.2 %; RBC 4.81 mil/uL (4.50-6.00); RDW-CV 13.4 % (10.5-14.5)
[2021-04-20 20:00] LABS: URINE BILIRUBIN NEGATIVE (Negative); URINE BLOOD NEGATIVE (Negative); URINE CLARITY CLEAR; URINE COLOR YELLOW; URINE GLUCOSE-RANDOM NEGATIVE (Negative); URINE KETONES NEGATIVE (Negative); URINE LEUKOCYTES-REFLEX NEGATIVE (Negative); URINE NITRITE-REFLEX NEGATIVE (Negative); URINE PROTEIN NEGATIVE (Negative); URINE UROBILINOGEN 0.2 E.U./dl (0.2-1.0)
[2021-04-20 20:13] LABS: CALCIUM 8.8 mg/dL (8.5-10.1)
[2021-04-20 20:18] LABS: ALBUMIN 4.5 g/dL (3.4-5.0); TOTAL BILIRUBIN 0.4 mg/dL (<0.1-1.0); TOTAL PROTEIN 7.8 g/dL (6.4-8.2)
[2021-04-20 22:10] VITALS: BP 130/80
--- NOTE | 2021-04-21 12:20 | EKG ---
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1980 Requested By: Lynette Parra Order Number: [id number] MD: Elmer Mclaughlin Measurements Intervals [place] Rate: 51 P: 10 [place]: 153 QRS: -16 QRSD: 103 T: 28 QT: 478 QTc: 441 Interpretive Statements Sinus bradycardia Borderline left axis deviation Abnormal R-wave progression, early transition Compared to ECG 12/13/2020 08:52:53 no change Electronically Signed On 04-21-2021 12:20:37 CDT by Elmer Mclaughlin [email or web address] <ELECTRONICALLY SIGNED> By: Elmer Mclaughlin MD, [facility] 04/21/21 1220 1858 1858 Elmer Mclaughlin MD, [facility] /EPI
== END 2021-04-20 22:10 | disposition home or self-care (01) ==
LOC: M.ERS 18:46
PROVIDERS: Physician Assistant
DX: R10.811 Right upper quadrant abdominal tenderness (principal); K21.9 Gastro-esophageal reflux disease without esophagitis; I48.91 Unspecified atrial fibrillation